=== PATIENT | male | born 1995 | race Caucasian/White ===

== ENCOUNTER 2018-02-11 13:01 | Emergency (ER) | payer SELFPAY ==
--- NOTE | 2018-02-11 15:09 | UC ---
Skin Complaint HPI - HPI Summary HPI Summary: States that 3 days ago he was bitten by an insect on his right leg with some local swelling and itching. Yesterday he saw a 'pimple' emerge for it in its central part and popped it after which the swelling became much worse and he noticed a black margin on the ulcer that it left. Pain is radiating upward to his calf and he became somewhat nauseous but states he had breakfast this morning without a problem. - History of Current Complaint Chief Complaint: UCSkin Time Seen by Provider: 02/11/18 13:05 Stated Complaint: SKIN ISSUE BUG BITE Hx Obtained From: Patient Onset/Duration: Sudden Onset, Lasting Days Skin Exposure Onset/Duration: Days Ago Onset Severity: Mild Current Severity: Severe Pain Intensity: 8 Pain Scale Used: 0-10 Numeric Location: Discrete Character: Swelling, Pruritus, Pain, Redness Aggravating Factor(s): Nothing Alleviating Factor(s): Nothing Associated Signs & Symptoms: Positive: Nausea, Rash Related History: Insect Bite/Sting - Allergy/Home Medications Allergies/Adverse Reactions: Allergies Allergy/AdvReac Type Severity Reaction Status Date / Time No Known Allergies Allergy Verified 02/11/18 13:17 Review of Systems Skin: Rash Gastrointestinal: Nausea All Other Systems Reviewed And Are Negative: Yes PMH/Surg Hx/FS Hx/Imm Hx Previously Healthy: Yes - Surgical History Surgical History: Yes Surgery Procedure, Year, and Place: eye surgery as a child - Family History Known Family History: Positive: None - Social History Alcohol Use: Occasionally Substance Use Type: None Smoking Status (MU): Current Every Day Smoker Type: Cigarettes Amount Used/How Often: 1 ppd Physical Exam Triage Information Reviewed: Yes Appearance: Well-Appearing, No Pain Distress, Well-Nourished Vital Signs: Initial Vital Signs Temp 98.4 F 02/11/18 13:18 Pulse 93 02/11/18 13:18 Resp 20 02/11/18 13:18 BP 122/81 02/11/18 13:18 Pulse Ox 100 02/11/18 13:18 Vital Signs Reviewed: Yes Eyes: Positive: Conjunctiva Clear ENT: Positive: Hearing grossly normal Neck: Positive: Supple, Nontender, No Lymphadenopathy Respiratory: Positive: Chest non-tender, Lungs clear, Normal breath sounds, No respiratory distress Cardiovascular: Positive: RRR, No Murmur, Pulses Normal, Brisk Capillary Refill Abdomen Description: Positive: Nontender, No Organomegaly, Soft Bowel Sounds: Positive: Present Musculoskeletal: Positive: Strength Intact, ROM Intact, No Edema Neurological: Positive: Alert, Muscle Tone Normal Skin: Positive: rashes - soft tissue indurated and erythematous with central ulcer with localized bleeding and dark borders on anterior aspect of distal right leg Course/Dx - Course Course Of Treatment: Patient with localized induration of right leg after insect bite which is very pruritic. It worsened after vesicle was ruptured and pain is radiating to proximal leg. Cellulitis to be treated with keflex and apply kenalog cream as directed. Referred to [facility] for primary care follow up in a week - Diagnoses Provider Diagnoses: insect bite. cellulitis Discharge - Sign-Out/Discharge Documenting (check all that apply): Patient Departure All imaging exams completed and their final reports reviewed: No Studies - Discharge Plan Condition: Stable Disposition: HOME Prescriptions: Cephalexin CAP* [Keflex CAP*] 500 mg PO TID 7 Days #21 cap Ibuprofen TAB* [Motrin TAB* 600 MG] 600 mg PO Q6H PRN #30 tab PRN Reason: Pain Triamcinolone 0.5% CREAM(NF) [Kenalog Cream 0.5%(NF)] 1 applic TOPICAL BID 7 Days #1 applic Patient Education Materials: Cephalexin (By mouth), Triamcinolone (On the skin) , Insect Bite or Sting (ED) Referrals: [facility] PHYSICIAN REFERRAL [Outside] No Primary Care Phys,NOPCP [Primary Care Provider] - - Billing Disposition and Condition Condition: STABLE Disposition: Home
== END 2018-02-11 14:50 | disposition home or self-care (01) ==
LOC: UCEAST 13:01
DX: S80.861A Insect bite (nonvenomous), right lower leg, initial encounter (principal); L03.115 Cellulitis of right lower limb; W57.XXXA Bitten or stung by nonvenomous insect and other nonvenomous arthropods, initial encounter; Y93.9 Activity, unspecified; Y92.9 Unspecified place or not applicable; R11.0 Nausea; F17.210 Nicotine dependence, cigarettes, uncomplicated
CPT/HCPCS: 99202; G0463

== ENCOUNTER 2018-12-04 09:35 | Emergency (ER) | payer SELFPAY ==
--- NOTE | 2018-12-04 10:02 | UC ---
Dental HPI - HPI Summary HPI Summary: 23 yo male presents with left lower tooth pain for the last 3-4 days. He tells me that he knows he has bad teeth and needs multiple teeth pulled due to fractures and gum disease. He does not have a dentist, but is in the process of finding one. Over the last 3-4 days has had increasing left lower tooth pain with swelling to cheek and gum. Has been taking ibuprofen with mild relief. He is able to eat, drink, and tolerate po. Denies fever or chills. - History of Current Complaint Chief Complaint: UCDentalProblem Stated Complaint: DENTAL PAIN Time Seen by Provider: 12/04/18 10:01 Hx Obtained From: Patient Onset/Duration: Gradual Onset Severity: Severe Pain Intensity: 8 Pain Scale Used: 0-10 Numeric - Allergies/Home Medications Allergies/Adverse Reactions: Allergies Allergy/AdvReac Type Severity Reaction Status Date / Time No Known Allergies Allergy Verified 12/04/18 09:52 PMH/Surg Hx/FS Hx/Imm Hx - Additional Past Medical History Additional PMH: None - Surgical History Surgical History: Yes Surgery Procedure, Year, and Place: eye surgery as a child - Family History Known Family History: Positive: None - Social History Lives: With Family Alcohol Use: Occasionally Substance Use Type: Marijuana Smoking Status (MU): Current Every Day Smoker Type: Cigarettes Amount Used/How Often: 1 ppd Review of Systems All Other Systems Reviewed And Are Negative: Yes Constitutional: Positive: Negative Skin: Positive: Negative ENT: Positive: Dental Pain Respiratory: Positive: Negative Cardiovascular: Positive: Negative Gastrointestinal: Positive: Negative Neurovascular: Positive: Negative Neurological: Positive: Negative Psychological: Positive: Negative Physical Exam - Summary Physical Exam Summary: GENERAL: NAD. WDWN. No pain distress. SKIN: No rashes, sores, lesions, or open wounds. HEENT: Head: AT/NC Nose: Nasal mucosa pink and moist. NTTP maxillary and frontal sinus. Throat: Posterior oropharynx without exudates, erythema, or tonsillar enlargement. Uvula midline. NECK: Supple. Nontender. No lymphadenopathy. CHEST: No accessory muscle use. Breathing comfortably and in no distress. NEURO: Alert. PSYCH: Age appropriate behavior. Triage Information Reviewed: Yes Vital Signs: Initial Vital Signs Temp 98.6 F 12/04/18 09:47 Pulse 94 12/04/18 09:47 Resp 18 12/04/18 09:47 BP 140/90 12/04/18 09:47 Pulse Ox 98 12/04/18 09:47 Vital Signs Reviewed: Yes Dental: Positive: Gross Decay/Caries @ - throughout, Dental Fracture @ - Tooth # 18, Abscess @ - Tooth #18. Negative: Cellulitis @, Cervical Lymphadenopathy, Bleeding Dental Complaint Course/Dx - Course Course Of Treatment: istop: Reference #: [id number] Tooth #18 abscess. - Differential Dx/Diagnosis Provider Diagnosis: Dental abscess Discharge - Sign-Out/Discharge Documenting (check all that apply): Patient Departure All imaging exams completed and their final reports reviewed: No Studies - Discharge Plan Condition: Stable Disposition: HOME Prescriptions: Amoxicillin PO (*) [Amoxicillin 500 MG CAP*] 500 mg PO Q12H #14 cap Chlorhexidine MW 0.12% 473ML* [Peridex Mouth Wash 0.12%] 15 ml MT BID #1 bottle HYDROcodone/ACETAMIN 5-325 MG* [[place] 5-325 TAB*] 1 tab PO BID PRN #6 tab MDD 2 PRN Reason: Pain Patient Education Materials: Dental Abscess (ED) Referrals: No Primary Care Phys,NOPCP [Primary Care Provider] - Additional Instructions: If you develop a fever, shortness of breath, chest pain, new or worsening symptoms - please call your PCP or go to the ED immediately. Your blood pressure was high at todays visit. Please see your primary provider within 4 weeks for recheck and re-evaluation. Please follow up with a dentist as soon as possible for further care of your teeth - Billing Disposition and Condition Condition: STABLE Disposition: Home
== END 2018-12-04 10:17 | disposition home or self-care (01) ==
LOC: UCEAST 09:35
DX: K04.7 Periapical abscess without sinus (principal); F17.210 Nicotine dependence, cigarettes, uncomplicated
CPT/HCPCS: 99212; G0463